=== PATIENT | male | born 1995 | race Caucasian/White ===

== ENCOUNTER 2025-09-21 22:22 | Emergency (ER) | payer OTHER, SELFPAY ==
[2025-09-21] MEDS ORDERED: diphenhydrAMINE 25 MG CAP ONE (22:37)
== END 2025-09-21 22:58 | disposition home or self-care (01) ==
LOC: MADERS 22:22
DX: T63.441A Toxic effect of venom of bees, accidental (unintentional), initial encounter (principal); T78.40XA Allergy, unspecified, initial encounter; I10 Essential (primary) hypertension; Z79.899 Other long term (current) drug therapy
CPT/HCPCS: 96372; 99282; J2919